=== PATIENT | female | born 1970 | race Caucasian/White ===

== ENCOUNTER 2017-02-10 19:40 | Observation (INO) | payer OTHER ==
[~2017-02-10] VITALS: Ht 165.1 cm; Wt 75.7 kg
[2017-02-10 20:01] LABS: HEMATOCRIT 38.3 % (36.0-46.0); MCH 32.8 PG (29.0-34.0); MCHC 34.2 G/DL (30.0-36.0); MCV 95.8 FL (83-99); PLATELET COUNT 277 K/uL (156-360); RBC DIS.WIDTH-CV 11.7 % (11.8-14.6); RBC DIS.WIDTH-SD 41.2 % (39-53); WHITE BLOOD COUNT 8.3 K/uL (4.1-10.2)
[2017-02-10 20:20] LABS: CHLORIDE 106 mEq/L (99-109); POTASSIUM 4.2 mEq/L (3.7-5.4); SODIUM 138 mEq/L (136-147)
[2017-02-10 20:22] LABS: GLUCOSE 107 mg/dL (70-99)
[2017-02-10 20:23] LABS: ANION GAP 11 MEQ/L (2-14)
[2017-02-10 20:26] LABS: GFR ESTIMATE (CALCULATED) > 59 mL/min/; UREA NITROGEN (BUN) 18 mg/dL (9-23)
[2017-02-10 20:29] LABS: TROP-I INTERPRETATION NEGATIVE; TROPONIN-I < 0.01 ng/mL (0.0-0.30)
[2017-02-10] MEDS ORDERED: ALYACEN1 EACH PO (22:22)
[2017-02-10] MEDS ORDERED: ADVIL200 MG PO (22:23)
[2017-02-10] MEDS ORDERED: LO-DOSE ASPIRIN81 M2 PO (22:24)
[2017-02-11 00:01] LABS: D-DIMER ELISA < 150.00 ng/mLDDU (<230)
[2017-02-11 03:51] LABS: TROP-I INTERPRETATION NEGATIVE; TROPONIN-I 0.01 ng/mL (0.0-0.30)
[2017-02-11 09:09] LABS: HEMATOCRIT 38.9 % (36.0-46.0); MCH 32.8 PG (29.0-34.0); MCHC 34.4 G/DL (30.0-36.0); MCV 95.1 FL (83-99); MEAN PLAT.VOLUME 9.2 uM^3 (9.5-12.4); PLATELET COUNT 264 K/uL (156-360); RBC DIS.WIDTH-CV 11.6 % (11.8-14.6); RBC DIS.WIDTH-SD 40.3 % (39-53); RED BLOOD COUNT 4.09 M/uL (3.80-5.20); WHITE BLOOD COUNT 5.9 K/uL (4.1-10.2)
[2017-02-11 09:20] LABS: CHLORIDE 106 mEq/L (99-109); POTASSIUM 3.9 mEq/L (3.7-5.4); SODIUM 139 mEq/L (136-147)
[2017-02-11 09:22] LABS: GLUCOSE 114 mg/dL (70-99)
[2017-02-11 09:23] LABS: ANION GAP 11 MEQ/L (2-14)
[2017-02-11 09:24] LABS: TOTAL BILIRUBIN 0.4 mg/dL (0.0-1.0)
[2017-02-11 09:26] LABS: ALKALINE PHOSPHATASE 50 IU/L (3-129); GFR ESTIMATE (CALCULATED) > 59 mL/min/
[2017-02-11 09:27] LABS: UREA NITROGEN (BUN) 11 mg/dL (9-23)
[2017-02-11 09:30] LABS: TROP-I INTERPRETATION NEGATIVE; TROPONIN-I < 0.01 ng/mL (0.0-0.30)
[2017-02-11 15:44] VITALS: BP 129/92
== END 2017-02-11 14:55 | disposition home or self-care (01) ==
LOC: EME 19:40 → EDOF 23:11 → ENRESERV 23:12 → UNDODEPER 02-11 00:01 → CANRESERV 02-11 12:27 → ENRESERV 02-11 12:27 → EDOF 02-11 14:55
PROVIDERS: Internal Medicine
DX: R07.9 Chest pain, unspecified (principal); R79.89 Other specified abnormal findings of blood chemistry; R94.31 Abnormal electrocardiogram [ECG] [EKG]; I47.1 Supraventricular tachycardia; R68.84 Jaw pain; Z79.82 Long term (current) use of aspirin; Z98.890 Other specified postprocedural states; Z82.49 Family history of ischemic heart disease and other diseases of the circulatory system
CPT/HCPCS: 71020; 80048; 80053; 84484; 85027; 85379; 93005; 99281; 99285; G0378; J1644